=== PATIENT | male | born 2005 | race Caucasian/White ===

== ENCOUNTER 2024-03-05 23:59 | Emergency (ER) | payer SELFPAY ==
[2024-03-06] MEDS: Diphtheria,Pertussis(Acell),Tetanus Vaccine 0.5 ML Syringe IM ONE (00:45)
[2024-03-06] MEDS: Lidocaine 1% 5 ML VIAL INJECT ONE (00:45)
== END 2024-03-06 01:06 | disposition home or self-care (01) ==
LOC: MW.ED 23:59
DX: S61.217A Laceration without foreign body of left little finger without damage to nail, initial encounter (principal); Z75.8 Other problems related to medical facilities and other health care; Z23 Encounter for immunization; X58.XXXA Exposure to other specified factors, initial encounter; Y93.89 Activity, other specified
CPT/HCPCS: 12001; 90471; 90715; 99282-25; J3490